=== PATIENT | female | born 1945 | race Hispanic/Latino ===

== ENCOUNTER → 2017-10-18 | Outpatient (CLI) | payer OTHER, MEDICARE ==
[~2017-10-18] MED LIST: LISINOPRIL10 MG PO; METFORMIN HCL500 MG PO; PRAVASTATIN SOD20 MG PO
--- NOTE | 2017-10-24 15:47 | Diagnostic Imaging Report ---
#[id number] - MGSCRNBI #BILATERAL DIGITAL SCREENING MAMMOGRAM WITH CAD: 10/18/2017 CLINICAL: Routine screening. Comparison is made to exams dated: 10/29/2015 ultrasound, 10/29/2015 mammogram, 05/01/2015 mammogram and 04/18/2015 mammogram - [facility]. Current study contains 4 films. The tissue of both breasts is heterogeneously dense. This may lower the sensitivity of mammography. Current study was also evaluated with a Computer Aided Detection (CAD) system. There are benign scattered calcifications in both breasts. The cyst in the left breast is less well defined on today's exam. No significant masses, calcifications, or other findings are seen in either breast. There has been no significant interval change. IMPRESSION: BENIGN There is no mammographic evidence of malignancy. A 1 year screening mammogram is recommended. The patient will be notified by letter of the results. Wade Duran Jr., D.O. cw/:10/24/2017 14:43:00 [employer]: Meli DAILY(R)(M), [facility] letter sent: Compared to Prior B9 Mammogram BI-RADS: 2 Benign
== END ==
LOC: MAMMO 14:52
PROVIDERS: ATTEND Family Medicine
DX: Z12.31 Encounter for screening mammogram for malignant neoplasm of breast (principal)

== ENCOUNTER → 2017-11-30 | Outpatient (CLI) | payer MEDICARE, OTHER ==
--- NOTE | 2017-11-30 11:30 | Diagnostic Imaging Report ---
PROCEDURE:C-SPINE COMPLETE COMPARISON:Patients [facility], DX, CERVICAL SPINE COMPLETE, 07/09/2015, 8:43. INDICATIONS:CERVICAL SPINE PAIN FINDINGS: The bones are diffusely demineralized. The lateral view is visualized from the skull base to C6. The vertebral bodies are well-aligned. The vertebral body heights are symmetric. There are no fractures, lytic or blastic lesions. Mild disc space narrowing at C5-6 is stable. The facets and spinous processes are normally aligned. 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 Lateral masses of C1 are symmetric. The dens is intact. Moderate foraminal narrowing on the left at C3-4 and mild to moderate foraminal narrowing on the left at C4-5. Moderate foraminal narrowing at C5-6 on the right is stable. The pre-vertebral soft tissues are normal. Skull base and upper chest are unremarkable. CONCLUSION: Bilateral neuroforaminal narrowing, most severe at C3-4 on the left and C5-6 on the right. Stable degenerative disc disease at C5-6. If there are focal neurologic deficits, recommend further evaluation of the cervical spine with MRI. Dictated by: Galen Shah M.D. on 11/30/2017 at 11:31 Electronically approved by: Galen Shah M.D. on 11/30/2017 at 11:31
--- NOTE | 2017-11-30 11:48 | Diagnostic Imaging Report ---
PROCEDURE:L-SPINE COMPLETE COMPARISON:Upper GI series 10/07/15. INDICATIONS:LUMBAR SPINE PAIN FINDINGS: The bones are diffusely demineralized. There are 5 lumbar-type vertebral bodies. The iliac crests are asymmetric. This may be positional. No evidence of scoliosis. The vertebral bodies are well-aligned without evidence of spondylolisthesis. The vertebral body heights are symmetric. There are no fractures, lytic or blastic lesions. Mild disc space narrowing at T10-11, T11-12, and T12-L1. Facets and spinous processes are normally aligned. There is bilateral facet arthropathy at the lower levels. No pars defects. The sacroiliac joints are unremarkable. The sacrum is normal. Visualized bowel gas pattern is normal. 2 spherical calcifications in the medial right upper quadrant measure 7 x 9 mm and 3 mm respectively. These are stable. There are no calcifications over the renal shadows or along the expected course of the ureters. CONCLUSION: Mild endplate degenerative changes of the lower thoracic and upper lumbar spine. Mild facet arthropathy of the lumbar spine. No compression deformities. Stable right upper quadrant abdominal calcifications. Dictated by: Galen Shah M.D. on 11/30/2017 at 11:49 Electronically approved by: Galen Shah M.D. on 11/30/2017 at 11:49
== END ==
LOC: RAD 09:32
PROVIDERS: ATTEND Family Medicine
DX: M54.2 Cervicalgia (principal); M54.5 Low back pain
CPT/HCPCS: 72050; 72110

== ENCOUNTER → 2018-10-27 | Outpatient (CLI) | payer MEDICARE, OTHER ==
--- NOTE | 2018-10-27 10:35 | Diagnostic Imaging Report ---
EXAM: DXA BONE DENSITY INDICATIONS: Not provided. COMPARISON: None. FINDINGS: Proximal left femur bone mineral density (BMD) (g/cm2):0.590 Femur T-score (standard deviation relative to young adult mean BMD): -2.8 Femur Z-score (standard deviation relative to age-matched control group):-1.3 Lumbar bone mineral density (BMD) (g/cm2):0.791 Lumbar T-score (standard deviation relative to young adult mean BMD): -2.3 Lumbar Z-score (standard deviation relative to age-matched control group):-0.2 Change since prior exam (%): Femur:Not applicable. Spine:Not applicable. Change since oldest prior exam (%): Femur:Not applicable. Spine:Not applicable. CONCLUSION: 1. Bone mineral density in the left femur is classified as osteopenia. Fracture risk is increased. 2. Bone mineral density in the spine is classified as osteopenia. Fracture risk is increased. World Health Organization Classification: *The Z-score is provided for informational purposes. The T-score is preferable for clinical decisions. When comparing exams, a change of >4% is considered statistically significant. SUGGESTED RECOMMENDATIONS: Normal & Osteopenia:Consideration should be given to use of calcium supplementation, daily multiple vitamins and adequate exercise, as preventive measures against osteoporosis, if clinically indicated. Osteoporosis & Severe Osteoporosis:In addition to the above, consideration should be given to medical therapy against osteoporosis, if clinically indicated. Wade Duran D.O. Dictated by: Wade Duran D.O. on 10/27/2018 at 10:48 Electronically approved by: Wade Duran D.O. on 10/27/2018 at 10:48
== END ==
LOC: MAMMO 08:51
PROVIDERS: ATTEND Family Medicine
DX: Z12.31 Encounter for screening mammogram for malignant neoplasm of breast (principal); Z13.820 Encounter for screening for osteoporosis; Z78.0 Asymptomatic menopausal state
CPT/HCPCS: 77067; 77080

== ENCOUNTER → 2019-03-26 | Outpatient (CLI) | payer MEDICARE, OTHER ==
--- NOTE | 2019-03-26 12:24 | Diagnostic Imaging Report ---
History: Low back pain Comparison studies: None Technique: Sagittal, coronal and axial T2 , sagittal T1 and IR, axial spin density oblique. Intravenous contrast: None Findings: Number of lumbar vertebral bodies:5 Alignment: Minimal dextroscoliosis centered at L4-L5.No scoliosis. Soft tissues: No T2 hyperintense inflammatory changes. Paraspinal muscles: No signal abnormalities. No atrophy. Lower thoracic cord:Normal in signal and morphology. The tip of the conus is at T12-L1. Cauda equina: No masses. No arachnoiditis. Vertebrae: Normal in height and signal intensity. No compression fractures, infection or neoplasm. Nondeforming hemangioma T12 vertebral body. Degenerative changes: L1-L2: No abnormalities. L2-L3: No abnormalities. L3-L4: Is degeneration with loss of T2 signal. Mild diffuse disc bulge with patent canal and foramina. L4-L5: Disc degeneration with loss of T2 signal. Small central disc protrusion and mild facet hypertrophy results in no significant canal stenosis or foraminal narrowing. L5-S1: Disc degeneration with loss of T2 signal. Small central disc protrusion and mild facet hypertrophy without significant canal stenosis or foraminal narrowing. Additional findings: None IMPRESSION: Mild degenerative changes of the lower lumbar spine without significant canal stenosis or foraminal narrowing Signed by: DR Jaiden Martin M.D. on 03/26/2019 12:21 PM
--- NOTE | 2019-03-26 12:44 | Diagnostic Imaging Report ---
History: Neck and bilateral arm pain Comparison studies: X-ray of the neck 11/30/2017 Technique: Sagittal T1, T2 and IR, axial T2 and axial gradient echo Intravenous contrast: None Findings: Alignment: Normal lordosis. No scoliosis. Cervicomedullary junction: No abnormalities. Patent foramen magnum. Soft tissues: No T2 hyperintense inflammatory changes. Spinal cord: Normal in size and signal from the foramen magnum through T4 Vertebrae: Normal in height and signal intensity. No fractures, infection or neoplasm. Degenerative changes: C2-C3: Disc degeneration with loss of T2 signal. Asymmetric right disc osteophyte complex with patent canal and foramina C3-C4: Disc degeneration with loss of T2 signal. Asymmetric right disc osteophyte complex, bilateral uncinate process and facet hypertrophy results in mild right canal stenosis and mild bilateral foraminal narrowing more prominent on the right. C4-C5: Disc degeneration with loss of T2 signal. Diffuse disc bulge, bilateral uncinate processes, left facet hypertrophy and ligamentum flavum thickening results in moderate canal stenosis, moderate right and severe left foraminal narrowing. C5-C6: Disc degeneration with loss of T2 signal and decreased intervertebral space. Diffuse disc osteophyte complex, bilateral uncinate process hypertrophy and left facet hypertrophy results in moderate canal stenosis, mild right and severe left foraminal narrowing. C6-C7: Disc degeneration with loss of T2 signal. Left facet hypertrophy with patent canal and mild left foraminal narrowing C7-T1: Disc degeneration with loss of T2 signal. Patent canal and foramina IMPRESSION: 1. 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 Other degenerative changes as described above. Signed by: DR Jaiden Martin M.D. on 03/26/2019 12:41 PM
== END ==
LOC: MRI 07:41
PROVIDERS: ATTEND Family Medicine
DX: M54.2 Cervicalgia (principal); M54.5 Low back pain
CPT/HCPCS: 72141; 72148

== ENCOUNTER → 2020-02-01 | Outpatient (CLI) | payer MEDICARE, OTHER | LOC: MAMMO 08:46 | PROVIDERS: ATTEND Family Medicine | DX: Z12.31 Encounter for screening mammogram for malignant neoplasm of breast (principal) | CPT/HCPCS: 77067 ==

== ENCOUNTER → 2021-02-04 | Outpatient (CLI) | payer MEDICARE | LOC: MAMMO 09:22 | PROVIDERS: ATTEND Family Medicine | DX: Z12.31 Encounter for screening mammogram for malignant neoplasm of breast (principal) | CPT/HCPCS: 77067 ==

== ENCOUNTER → 2024-04-16 | Outpatient (REF) | payer MEDICARE | LOC: DX 10:52 | PROVIDERS: ATTEND Family Medicine | DX: M81.0 Age-related osteoporosis without current pathological fracture (principal) | CPT/HCPCS: 77080 ==